=== PATIENT | female | born 1970 | race Caucasian/White ===

== ENCOUNTER 2018-03-22 06:52 | Emergency (ER) | payer MEDICAID, OTHER ==
[~2018-03-22] VITALS: Ht 152.4 cm; Wt 72.6 kg
[2018-03-22 07:49] VITALS: BP 140/71
[2018-03-22] MEDS ORDERED: IBUPROFEN 600 MG TAB PO ONE (08:15)
[2018-03-22] MEDS ORDERED: cefTRIAXone SOD 1,000 MG VL IM ONE (08:15)
== END 2018-03-22 08:27 | disposition home or self-care (01) ==
LOC: ER 06:56
DX: L03.031 Cellulitis of right toe (principal); M06.9 Rheumatoid arthritis, unspecified
CPT/HCPCS: 96372; 99283; J0696